=== PATIENT | male | born 1950 | race Caucasian/White ===

== ENCOUNTER 2016-06-16 00:22 | Emergency (ER) | payer OTHER ==
--- NOTE | 2016-06-16 04:55 | ED ORDER SUMMARY ---
..... Patient: DEBRA SHI OrderSheet [facility] VisitID: [id number] [place] [address] 65y, M Registration Date/Time: 06/16/2016 ORDER SHEET Weight: 71.2 kg (stated) Allergies: No Known Drug Allergy GENERAL ORDERS: Cardiac Panel Stat (00:54 06/16/2016 Andressa REED) (Ack 1:07 Odilon) (1:11 Deanna R.N.) Amylase Urgent (00:54 06/16/2016 Andressa REED) (Ack 1:07 Odilon) (1:11 Deanna R.N.) Lipase Urgent (00:54 06/16/2016 Andressa REED) (Ack 1:08 Odilon) (1:11 Deanna R.N.) - (po challenge.) (02:18 06/16/2016 Andressa REED) (2:26 Deanna R.N.) MEDICATION ORDERS: IV FLUIDS: IV NS : initial bolus 500 mL (1000 mL/hr), then 200 mL/hr for 4h (NOW); Routine (00:53 06/16/2016 Andressa REED) (Ack 0:54 Deanna R.N.) (1:12 Deanna R.N.) Zofran IV 4 mg (NOW) (00:53 06/16/2016 Andressa REED) (Ack 0:54 Deanna R.N.) (1:12 Deanna R.N.) Clindamycin IV 900 mg/50mL (NOW) (02:06/16/2016 Andressa REED) (Cancelled: Other2:17 Andressa REED) Levaquin IV 750 mg/150 mL (NOW) (02:06/16/2016 Andressa REED) (Cancelled: Other2:17 Andressa REED) Vancomycin IV 25 mg/kg (NOW) (02:17 06/16/2016 Andressa REED) (Ack 2:23 Deanna R.N.) (2:45 Deanna R.N.) ORDER SHEET NOTES: [Electronically signed by Nayeli Dupont R.N. (04:54 06/16/2016)] [Electronically locked/signed by Nayeli Dupont R.N. (04:54 06/16/2016)]
--- NOTE | 2016-06-16 04:55 | ED NURSING NOTES ---
Clinical Report - Nurses [address] [place] [address] [place] [address] 06/16/2016 0:24 Patient: DEBRA SHI TRIAGE Triage time 00:25. Acuity: LEVEL 3. Chief Complaint: ABDOMINAL PAIN, NAUSEA and VOMITING. --00:33 Nayeli Dupont R.N. 00:25 06/16/16. BP: 166/88 (regular adult cuff) taken on the left arm, while lying. HR: 85 (regular, normal rate and strong). RR: 18 (regular, unlabored and normal). O2 saturation: 98% on room air. Temp: 98.9 F (oral). Pain level now: 03/27. --00:33 Nayeli Dupont R.N. Weight: 71.2 kg stated. Height/Length: 68 inches Per Patient. BMI: 23.9. --00:29 Nayeli Dupont R.N. Medications Augmentin Oral (Tablet 875-125 mg) 1 tablet, 2x a day. --00:27 Nayeli Dupont R.N. Hydrochlorothiazide Oral (Tablet 25 mg) 1 tablet, daily. --00:28 Nayeli Dupont R.N. Losartan Potassium Oral (Tablet 100 mg) 1 tablet, daily. --00:28 Nayeli Dupont R.N. Allergies No Known Drug Allergy. --00:28 Nayeli Dupont R.N. History Arrived by EMS. Historian: patient. Primary physician (robel). Onset was abrupt. Symptoms are constant (about 9 PM). ( started taking Augmentin tonight at 2000 for a glandular infection). He has had severe nausea (2 hours ago). He has had severe vomiting (since 2 hours ago). The vomiting has occurred numerous times. PAST MEDICAL HX: Immunizations: up-to-date. SOCIAL HX: Occasional alcohol use. History of occasional drug use: marijuana. SELF HARM ASSESSMENT: A self harm assessment was performed. The patient answered "no" to the question "Have you recently felt down, depressed, or hopeless?", "Have you noticed less interest or pleasure in doing things?", "Do you have thoughts of harming or killing yourself?", "Are you here because you tried to hurt yourself?", "Have you ever tried to hurt yourself before today?", "Have you recently had thoughts about harming or killing others?" and "Do you have any dangerous items in your possession?". --00:33 Nayeli Dupont R.N. PROBLEMS: Hypertension. --00:30 Nayeli Dupont R.N. ADDITIONAL SURGERIES: Discectomy for intervertebral herniated disc, nucleus pulposus. Tonsillectomy & Adenoidectomy. --00:30 Nayeli Dupont R.N. Interventions ID band on patient. --00:33 Nayeli Dupont R.N. PHYSICAL ASSESSMENT GENERAL / NEURO / PSYCH: Alert. Oriented X 4. Appears in no acute distress. HEENT: Mucous membranes are pink. RESPIRATORY: Respirations not labored. CVS: Normal sinus rhythm noted. Capillary refill less than 2 seconds. GI / : Abdomen soft and nontender. Bowel sounds within normal limits. SKIN: Skin is warm and dry. --00:33 Nayeli Dupont R.N. To room via stretcher. Patient gowned. --00:33 Nayeli Dupont R.N. NURSING PROGRESS NOTES Two patient identifiers checked. Call light placed in reach. Side rails up x 2. Bed placed in lowest position. Brakes of bed on. --00:34 Nayeli Dupont R.N. Patient ready for evaluation- chart flagged. --00:34 Nayeli Dupont R.N. 01:05 06/16/2016 Site #1 started via IV in the right forearm with an 18g angiocath, with aseptic technique and good blood return; one attempt. Blood drawn: rainbow set. Labeled in the presence of the patient and sent to the lab. Saline lock flushed with 10 mL saline. --01:12 Nayeli Dupont R.N. 01:08 06/16/2016 Started bag #1 1000 mL IV Fluids IV NS (Saline); bolus of 500 mL over 1 hour(s) via site #1 via IV pump. Allergies verified and confirmed 5 rights. IV patency established. IV site checked: no pain, redness, or swelling. IV flushed thoroughly pre- and post-medication administration. --01:12 Nayeli Dupont R.N. 01:08 06/16/2016 Zofran (Ondansetron HCl) IVP 4 mg given over 2 minute(s) via site #1. Allergies verified and confirmed 5 rights. IV patency established. IV site checked: no pain, redness, or swelling. IV flushed thoroughly pre- and post-medication administration. IVP given by RN. --01:12 Nayeli Dupont R.N. Reassurance given to the patient and patient's family. GI / : The patient reports vomiting is still present and worsening and currently severe, with emesis that is currently described as dark (400ML prior to IV start). Two patient identifiers checked. Call light placed in reach. Side rails up x 2. Bed placed in lowest position. Brakes of bed on. --01:14 Nayeli Dupont R.N. 01:38 06/16/2016 IV Fluids IV NS via IV site #1 Rate Changed: bag #1 decreased to 200 mL/hr via IV pump. IV patency established. IV site checked: no pain, redness, or swelling. IV flushed thoroughly. (500ml bolus complete). --01:38 Jeannine Lopez R.N. 01:50 06/16/16. BP: 136/81 taken on the left arm, while lying. HR: 65 (regular and normal rate). RR: 18 (regular and unlabored). O2 saturation: 97% on room air. Temp: deferred. Pain level now: 02/24. --01:51 Nayeli Dupont R.N. Reassessment after fluids administered and medication administered (Zofran). Overall patient status is improved- he states feels better. --01:51 Nayeli Dupont R.N. 02:39 06/16/2016 Started 2 gm of Vancomycin IVPB in bag #1 500 mL; over 2 hour(s) via site #1 via IV pump. Allergies verified and confirmed 5 rights. IV patency established. IV site checked: no pain, redness, or swelling. IV flushed thoroughly pre- and post-medication administration. --02:45 Nayeli Dupont R.N. 02:45 06/16/16. BP: 140/77 taken on the left arm, while lying. HR: 69 (regular and normal rate). RR: 16. O2 saturation: 97% on room air. Temp: deferred. Pain level now: 02/24. --02:46 Nayeli Dupont R.N. Overall patient status is improved- he states feels better. ( po challenge tolerated, IVF infusing, pt resting no distress noted at this time.). GI / : The patient reports nausea is gone now. He reports vomiting is gone now. Abdomen soft and nontender. Bowel sounds within normal limits. SKIN: Skin is warm and dry. Skin color within normal limits. --03:13 Nayeli Dupont R.N. 04:42 06/16/2016 IV Fluids IV NS Discontinued: bag #1 completed. Total amount infused: 1000 mL. IV patency established. IV site checked: no pain, redness, or swelling. IV flushed thoroughly. --04:42 Nayeli Dupont R.N. 04:42 06/16/2016 Vancomycin IVPB Discontinued: bag #1 completed. Total amount infused: 500 mL. IV patency established. IV site checked: no pain, redness, or swelling. IV flushed thoroughly. --04:42 Nayeli Dupont R.N. DISPOSITION / DISCHARGE 04:51 06/16/2016 Site #1 removed upon discharge. Catheter intact. Manual pressure and bandage applied. --04:51 Nayeli Dupont R.N. Departure time: 0451. Condition at departure: improved. No learning barriers present. Discharge instructions provided and reviewed with the patient and spouse. Reviewed medication(s) side effects, precautions, dosing and course information. Prescription(s) given to the patient. Activity restrictions (rest) reviewed. Work note given. Patient and spouse verbalized understanding. Written instructions provided in Lithuanian. The patient was discharged home and accompanied by spouse. He left the Emergency Department ambulatory and via private vehicle. Spouse driving. --04:54 Nayeli Dupont R.N. 04:51 06/16/16. BP: 127/80 (regular adult cuff) taken on the left arm, while lying. HR: 72 (regular and normal rate). RR: 18 (regular and unlabored). O2 saturation: 100% on room air. Temp: 98.3 F (oral). Pain level now: 02/24. --04:54 Nayeli Dupont R.N. Locked/Released at 06/16/2016 4:54 by Nayeli Dupont R.N.
--- NOTE | 2016-06-16 04:55 | ED ORDER SUMMARY ---
..... Patient: DEBRA SHI OrderSheet [facility] VisitID: [id number] [place] [address] 65y, M Registration Date/Time: 06/16/2016 ORDER SHEET Weight: 71.2 kg (stated) Allergies: No Known Drug Allergy GENERAL ORDERS: Cardiac Panel Stat (00:54 06/16/2016 Andressa REED) (Ack 1:07 Odilon) (1:11 Deanna R.N.) Amylase Urgent (00:54 06/16/2016 Andressa REED) (Ack 1:07 Odilon) (1:11 Deanna R.N.) Lipase Urgent (00:54 06/16/2016 Andressa REED) (Ack 1:08 Odilon) (1:11 Deanna R.N.) - (po challenge.) (02:18 06/16/2016 Andressa REED) (2:26 Deanna R.N.) MEDICATION ORDERS: IV FLUIDS: IV NS : initial bolus 500 mL (1000 mL/hr), then 200 mL/hr for 4h (NOW); Routine (00:53 06/16/2016 Andressa REED) (Ack 0:54 Deanna R.N.) (1:12 Deanna R.N.) Zofran IV 4 mg (NOW) (00:53 06/16/2016 Andressa REED) (Ack 0:54 Deanna R.N.) (1:12 Deanna R.N.) Clindamycin IV 900 mg/50mL (NOW) (02:06/16/2016 Andressa REED) (Cancelled: Other2:17 Andressa REED) Levaquin IV 750 mg/150 mL (NOW) (02:06/16/2016 Andressa REED) (Cancelled: Other2:17 Andressa REED) Vancomycin IV 25 mg/kg (NOW) (02:17 06/16/2016 Andressa REED) (Ack 2:23 Deanna R.N.) (2:45 Deanna R.N.) ORDER SHEET NOTES: [Electronically signed by Nayeli Dupont R.N. (04:54 06/16/2016)] [Electronically locked/signed by Nayeli Dupont R.N. (04:54 06/16/2016)]
--- NOTE | 2016-06-16 04:55 | ED CLINICAL REPORT ---
Clinical Report - Physicians/Mid Levels [facility] [address] [place] [address] 06/16/2016 0:24 Patient: DBERA SHI Time Seen: 00:46 Jun 16 2016. Arrived- By ambulance. Historian- patient, EMS personnel, family and spouse. CPT: ER phys charges level 4 (#[id number]). HISTORY OF PRESENT ILLNESS Chief Complaint: VOMITING. This started just prior to arrival )ne hour after taking first dose of augmentin. and is still present. The patient has had nausea and vomiting. No diarrhea, black stools, bloody stools, abdominal pain or flank pain. No history of possible bad food exposure or known contact with a sick individual. Has recently been on antibiotics but not recently been camping. The illness is described as moderate. Similar symptoms previously: None. Recent medical care: The patient was seen recently at another facility in a clinic. Diagnosis: (right parotitis). REVIEW OF SYSTEMS No fever, muscle aches, difficulty with urination, dark urine or dizziness. No sore throat, cough, chest pain, difficulty breathing or skin rash. All systems otherwise negative, except as recorded above. PAST HISTORY Hypertension. - ADDITIONAL SURGERIES: Discectomy for intervertebral herniated disc, nucleus pulposus. Tonsillectomy & Adenoidectomy. Medications: Losartan Potassium Oral (Tablet 100 mg) 1 tablet, daily. Hydrochlorothiazide Oral (Tablet 25 mg) 1 tablet, daily. Augmentin Oral (Tablet 875-125 mg) 1 tablet, 2x a day. Allergies: No Known Drug Allergy. SOCIAL HISTORY Never smoker. Occasional alcohol use. History of occasional drug use: marijuana. ADDITIONAL NOTES The nursing notes have been reviewed. PHYSICAL EXAM Vital Signs: 06/16/2016 00:25 BP: 166/88. HR: 85. RR: 18. O2 saturation: 98%. Temp: 98.9 F. Pain level now: 2/10. Appearance: Alert. Patient in mild distress. (Acitive emesis in the ER.). Eyes: Eyes normal inspection. ENT: Pharynx normal. (mild swelling and tenderness over the right parotid gland.). Neck: Normal inspection. CVS: Normal heart rate and rhythm. Heart sounds normal. Pulses normal. Respiratory: No respiratory distress. Breath sounds normal. Abdomen: Soft and nontender. Bowel sounds normal. Back: Normal inspection. Skin: Skin warm. Normal skin color. No rash. Extremities: Extremities exhibit normal ROM. Neuro: Oriented X 3. No motor deficit. No sensory deficit. Reflexes normal. LABS, X-RAYS, AND EKG Laboratory Tests: CBC w Diff: (PAO: 06/16/2016 01:05) ( [facility] 06/16/2016 01:17) Final results Test Result Flag Units (Reference) WHITE BLOOD COUNT 24.6 H K/uL (4.5-11.5) RED BLOOD COUNT 5.29 M/uL (4.50-5.90) HEMOGLOBIN 17.2 gm/dL (13.5-17.5) HEMATOCRIT 51.3 % (41.0-53.0) MEAN CELL VOLUME 97 fL (80-100) MEAN CORPUSCULAR HGB 32 pg (26-34) MEAN CORPUSCULAR HGB CONC 33 g/dL (31-37) RED CELL DISTRIBUTION WIDTH 13.6 % (11.6-14.8) PLATELET COUNT 310 K/uL (150-400) NEUTROPHIL % 92.7 H % (50-75) LYMPH % 2.6 L % (25-40) MONO % 4.1 % (3-14) EOSINOPHIL % 0.6 % (0-4) BASOPHIL % 0 % (0-2) Lipase: (PAO: 06/16/2016 01:05) ( [facility] 06/16/2016 01:27) Final results Test Result Flag Units (Reference) LIPASE 332 U/L (73-393) AMYLASE 517 H U/L (25-115) CHEM 13 PANEL: (PAO: 06/16/2016 01:05) ( [facility] 06/16/2016 01:32) Final results Test Result Flag Units (Reference) GLUCOSE 161 H mg/dL (70-110) BUN 13 mg/dL (7-18) CREATININE 0.8 mg/dL (0.6-1.3) Estimated GFR >60 mL/min Estimated GFR- >60 mL/min Note: Persistent reduction over 3 months in eGFR<60 mL/min/1.73 m2 defines CKD. Patients with eGFR values>=60 mL/min/1.73 m2 may also have CKD if evidence ofpersistent proteinuria. Additional information may be foundat www.kidney.org. SODIUM 141 mmol/L (136-145) POTASSIUM 4.0 mmol/L (3.5-5.1) CHLORIDE 102 mmol/L (98-107) CARBON DIOXIDE 25 mmol/L (21-32) CALCIUM 9.5 mg/dL (8.5-10.1) TOTAL PROTEIN 7.9 g/dL (6.4-8.2) ALBUMIN 4.2 g/dL (3.3-5.0) BILIRUBIN, TOTAL 0.6 mg/dL (0.0-1.0) ALKALINE PHOSPHATASE 125 H U/L (46-116) AST (SGOT) 33 U/L (15-37) ALT (SGPT) 53 U/L (12-78) MAGNESIUM 1.7 L mg/dL (1.8-2.4) CPK 90 U/L (24-260) TROPONIN I <0.05 ng/mL (0.00-1.5) TROPONIN REFERENCE RANGE:<0.1 NEGATIVE0.1-1.5 INDETERMINANT>1.5 POSITIVE . PROGRESS AND PROCEDURES Course of Care: Pt has had active and continuous vomiting for the last hour without relief. His elevated WBC is likely due to demargination from the excessive vomiting. . Pt is not septic or toxic. He likely has intolerance for the clavulinate as he has had amoxicillin in the past without any problems. Abdomen is non-tender and labs do not support another GI diagnosis or other process related to the cardiovascular or neurologic systems. Amylase is slightly elevated and due to the excessive vomiting and parotitis. Pt has no abdominal pain. IV NS Zofran 4 mg IV Vancomycin 25mg/kg IV Pt able to take po now without emesis. Patient is stable. Symptoms much better. Patient/family counseled. Disposition: Discharged. Condition: stable and improved. CLINICAL IMPRESSION Vomiting reaction due to augmentin Parotitis right side. INSTRUCTIONS No strenuous activity. Rest. Drink plenty of fluids. Warnings: Further evaluation is necessary. GENERAL WARNINGS: Return or contact your physician immediately if your condition worsens or changes unexpectedly, if not improving as expected, or if other problems arise. Your Current Medications: STOP TAKING THE FOLLOWING MEDICATIONS: Augmentin Oral : Tablet 875-125 mg, 1 tablet 2x a day. Prescription Medications: Zofran (orally disintegrating tablets) 4 mg: take 1 orally every 4 hours as needed for nausea and vomiting. Dispense fifteen (15). No refill. Substitution is permissible. Levaquin 500 mg: take 1 tab orally every day for 10 days. No refills. Clindamycin 300 mg: take 1 capsule orally every 6 hours for 7 days. No refills. Follow-up: Follow up with your doctor in two days. Call for the next available appointment. Understanding of the discharge instructions verbalized by patient and family. Discharge instructions reviewed with and understanding was verbalized by spouse. (Electronically signed by Korey Glynn MD 06/17/2016 8:36)
--- NOTE | 2016-06-16 04:55 | ED CLINICAL REPORT ---
Clinical Report - Physicians/Mid Levels [facility] [address] [place] [address] 06/16/2016 0:24 Patient: DEBRA SHI Time Seen: 00:46 Jun 16 2016. Arrived- By ambulance. Historian- patient, EMS personnel, family and spouse. CPT: ER phys charges level 4 (#[id number]). HISTORY OF PRESENT ILLNESS Chief Complaint: VOMITING. This started just prior to arrival )ne hour after taking first dose of augmentin. and is still present. The patient has had nausea and vomiting. No diarrhea, black stools, bloody stools, abdominal pain or flank pain. No history of possible bad food exposure or known contact with a sick individual. Has recently been on antibiotics but not recently been camping. The illness is described as moderate. Similar symptoms previously: None. Recent medical care: The patient was seen recently at another facility in a clinic. Diagnosis: (right parotitis). REVIEW OF SYSTEMS No fever, muscle aches, difficulty with urination, dark urine or dizziness. No sore throat, cough, chest pain, difficulty breathing or skin rash. All systems otherwise negative, except as recorded above. PAST HISTORY Hypertension. - ADDITIONAL SURGERIES: Discectomy for intervertebral herniated disc, nucleus pulposus. Tonsillectomy & Adenoidectomy. Medications: Losartan Potassium Oral (Tablet 100 mg) 1 tablet, daily. Hydrochlorothiazide Oral (Tablet 25 mg) 1 tablet, daily. Augmentin Oral (Tablet 875-125 mg) 1 tablet, 2x a day. Allergies: No Known Drug Allergy. SOCIAL HISTORY Never smoker. Occasional alcohol use. History of occasional drug use: marijuana. ADDITIONAL NOTES The nursing notes have been reviewed. PHYSICAL EXAM Vital Signs: 06/16/2016 00:25 BP: 166/88. HR: 85. RR: 18. O2 saturation: 98%. Temp: 98.9 F. Pain level now: 2/10. Appearance: Alert. Patient in mild distress. (Acitive emesis in the ER.). Eyes: Eyes normal inspection. ENT: Pharynx normal. (mild swelling and tenderness over the right parotid gland.). Neck: Normal inspection. CVS: Normal heart rate and rhythm. Heart sounds normal. Pulses normal. Respiratory: No respiratory distress. Breath sounds normal. Abdomen: Soft and nontender. Bowel sounds normal. Back: Normal inspection. Skin: Skin warm. Normal skin color. No rash. Extremities: Extremities exhibit normal ROM. Neuro: Oriented X 3. No motor deficit. No sensory deficit. Reflexes normal. LABS, X-RAYS, AND EKG Laboratory Tests: CBC w Diff: (PAO: 06/16/2016 01:05) ( [facility] 06/16/2016 01:17) Final results Test Result Flag Units (Reference) WHITE BLOOD COUNT 24.6 H K/uL (4.5-11.5) RED BLOOD COUNT 5.29 M/uL (4.50-5.90) HEMOGLOBIN 17.2 gm/dL (13.5-17.5) HEMATOCRIT 51.3 % (41.0-53.0) MEAN CELL VOLUME 97 fL (80-100) MEAN CORPUSCULAR HGB 32 pg (26-34) MEAN CORPUSCULAR HGB CONC 33 g/dL (31-37) RED CELL DISTRIBUTION WIDTH 13.6 % (11.6-14.8) PLATELET COUNT 310 K/uL (150-400) NEUTROPHIL % 92.7 H % (50-75) LYMPH % 2.6 L % (25-40) MONO % 4.1 % (3-14) EOSINOPHIL % 0.6 % (0-4) BASOPHIL % 0 % (0-2) Lipase: (PAO: 06/16/2016 01:05) ( [facility] 06/16/2016 01:27) Final results Test Result Flag Units (Reference) LIPASE 332 U/L (73-393) AMYLASE 517 H U/L (25-115) CHEM 13 PANEL: (PAO: 06/16/2016 01:05) ( [facility] 06/16/2016 01:32) Final results Test Result Flag Units (Reference) GLUCOSE 161 H mg/dL (70-110) BUN 13 mg/dL (7-18) CREATININE 0.8 mg/dL (0.6-1.3) Estimated GFR >60 mL/min Estimated GFR- >60 mL/min Note: Persistent reduction over 3 months in eGFR<60 mL/min/1.73 m2 defines CKD. Patients with eGFR values>=60 mL/min/1.73 m2 may also have CKD if evidence ofpersistent proteinuria. Additional information may be foundat www.kidney.org. SODIUM 141 mmol/L (136-145) POTASSIUM 4.0 mmol/L (3.5-5.1) CHLORIDE 102 mmol/L (98-107) CARBON DIOXIDE 25 mmol/L (21-32) CALCIUM 9.5 mg/dL (8.5-10.1) TOTAL PROTEIN 7.9 g/dL (6.4-8.2) ALBUMIN 4.2 g/dL (3.3-5.0) BILIRUBIN, TOTAL 0.6 mg/dL (0.0-1.0) ALKALINE PHOSPHATASE 125 H U/L (46-116) AST (SGOT) 33 U/L (15-37) ALT (SGPT) 53 U/L (12-78) MAGNESIUM 1.7 L mg/dL (1.8-2.4) CPK 90 U/L (24-260) TROPONIN I <0.05 ng/mL (0.00-1.5) TROPONIN REFERENCE RANGE:<0.1 NEGATIVE0.1-1.5 INDETERMINANT>1.5 POSITIVE . PROGRESS AND PROCEDURES Course of Care: Pt has had active and continuous vomiting for the last hour without relief. His elevated WBC is likely due to demargination from the excessive vomiting. . Pt is not septic or toxic. He likely has intolerance for the clavulinate as he has had amoxicillin in the past without any problems. Abdomen is non-tender and labs do not support another GI diagnosis or other process related to the cardiovascular or neurologic systems. Amylase is slightly elevated and due to the excessive vomiting and parotitis. Pt has no abdominal pain. IV NS Zofran 4 mg IV Vancomycin 25mg/kg IV Pt able to take po now without emesis. Patient is stable. Symptoms much better. Patient/family counseled. Disposition: Discharged. Condition: stable and improved. CLINICAL IMPRESSION Vomiting reaction due to augmentin Parotitis right side. INSTRUCTIONS No strenuous activity. Rest. Drink plenty of fluids. Warnings: Further evaluation is necessary. GENERAL WARNINGS: Return or contact your physician immediately if your condition worsens or changes unexpectedly, if not improving as expected, or if other problems arise. Your Current Medications: STOP TAKING THE FOLLOWING MEDICATIONS: Augmentin Oral : Tablet 875-125 mg, 1 tablet 2x a day. Prescription Medications: Zofran (orally disintegrating tablets) 4 mg: take 1 orally every 4 hours as needed for nausea and vomiting. Dispense fifteen (15). No refill. Substitution is permissible. Levaquin 500 mg: take 1 tab orally every day for 10 days. No refills. Clindamycin 300 mg: take 1 capsule orally every 6 hours for 7 days. No refills. Follow-up: Follow up with your doctor in two days. Call for the next available appointment. Understanding of the discharge instructions verbalized by patient and family. Discharge instructions reviewed with and understanding was verbalized by spouse. (Electronically signed by Korey Glynn MD 06/17/2016 8:36)
--- NOTE | 2016-06-17 08:37 | ED MAR SUMMARY ---
..... Medication Administration Record [facility] [address] [place] [address] Patient: DEBRA SHI Visit ID: [id number] 65y, M Weight: 71.2 kg Height/Length: 68 in BMI: 23.9 ALLERGIES: No Known Drug Allergy Start 01:08 06/16/2016 Nayeli Dupont R.N., Stop 04:42 06/16/2016 Nayeli Dupont R.N. Medication Administered: IV NS (SALINE), Dose: IV Fluids, Bolus: 500 mL over 1 hour(s), Dispensed: 1000 mL bag, Site: #1 right forearm. Medication Ordered: IV NS : initial bolus 500 mL (1000 mL/hr), then 200 mL/hr for 4h (NOW); Routine. Given 01:08 06/16/2016 Nayeli Dupont R.N. Medication Administered: ZOFRAN [IVP] (ONDANSETRON HCL), Dose: 4 mg IVP over 2 minute(s), Site: #1 right forearm. Medication Ordered: Zofran IV 4 mg (NOW). Start 02:39 06/16/2016 Nayeli Dupont R.N., Stop 04:42 06/16/2016 Nayeli Dupont R.N. Medication Administered: VANCOMYCIN [IVPB], Dose: 2 gm IVPB over 2 hour(s), Dispensed: 500 mL bag, Site: #1 right forearm. Medication Ordered: Vancomycin IV 25 mg/kg (NOW).
--- NOTE | 2016-06-17 08:37 | ED MED RECONCILIATION SUMMARY ---
Patient: DEBRA SHI Medication Reconciliation Report [facility] VisitID: [id number] [place] [address] 65y, M Registration Date/Time: 06/16/2016 Weight: 71.2 kg Height/Length: 68 in. BMI: 23.9 ALLERGIES: No Known Drug Allergy The patient's Home Medications are listed below: STOP TAKING THE FOLLOWING MEDICATIONS: Augmentin Oral (875-125 mg) 1 tablet, 2x a day THE FOLLOWING MEDICATIONS NEED TO BE RECONCILED: Hydrochlorothiazide Oral (25 mg) 1 tablet, daily Losartan Potassium Oral (100 mg) 1 tablet, daily The source(s) of the original Home Medication information: Not obtained. The following Medications were given to the patient in the Emergency Department: IV NS IV Fluids bolus 500 mL over 1 hour(s), administered: 06/16/2016 1:08:00 AM Zofran [IVP] IVP 4 mg, administered: 06/16/2016 1:08:00 AM Vancomycin [IVPB] IVPB bolus 0, then 2 gm, administered: 06/16/2016 2:39:00 AM The following Medications were prescribed to the patient: Zofran (orally disintegrating tablets) 4 mg: take 1 orally every 4 hours as needed for nausea and vomiting. Dispense fifteen (15). No refill. Substitution is permissible. -- Korey Glynn MD Levaquin 500 mg: take 1 tab orally every day for 10 days. No refills. -- Korey Glynn MD Clindamycin 300 mg: take 1 capsule orally every 6 hours for 7 days. No refills. -- Korey Glynn MD
--- NOTE | 2016-06-17 08:37 | ED MAR SUMMARY ---
..... Medication Administration Record [facility] [address] [place] [address] Patient: DEBRA SHI Visit ID: [id number] 65y, M Weight: 71.2 kg Height/Length: 68 in BMI: 23.9 ALLERGIES: No Known Drug Allergy Start 01:08 06/16/2016 Nayeli Dupont R.N., Stop 04:42 06/16/2016 Nayeli Dupont R.N. Medication Administered: IV NS (SALINE), Dose: IV Fluids, Bolus: 500 mL over 1 hour(s), Dispensed: 1000 mL bag, Site: #1 right forearm. Medication Ordered: IV NS : initial bolus 500 mL (1000 mL/hr), then 200 mL/hr for 4h (NOW); Routine. Given 01:08 06/16/2016 Nayeli Dupont R.N. Medication Administered: ZOFRAN [IVP] (ONDANSETRON HCL), Dose: 4 mg IVP over 2 minute(s), Site: #1 right forearm. Medication Ordered: Zofran IV 4 mg (NOW). Start 02:39 06/16/2016 Nayeli Dupont R.N., Stop 04:42 06/16/2016 Nayeli Dupont R.N. Medication Administered: VANCOMYCIN [IVPB], Dose: 2 gm IVPB over 2 hour(s), Dispensed: 500 mL bag, Site: #1 right forearm. Medication Ordered: Vancomycin IV 25 mg/kg (NOW).
--- NOTE | 2016-06-17 08:37 | ED DISCHARGE INSTRUCTIONS ---
Patient: DEBRA SHI General Instructions [facility] VisitID: [id number] [place] [address] 65y, M Registration Date/Time: 06/16/2016 Vomiting reaction due to augmentin Parotitis right side. INSTRUCTIONS No strenuous activity. Rest. Drink plenty of fluids. Warnings: Further evaluation is necessary. GENERAL WARNINGS: Return or contact your physician immediately if your condition worsens or changes unexpectedly, if not improving as expected, or if other problems arise. Your Current Medications: STOP TAKING THE FOLLOWING MEDICATIONS: Augmentin Oral : Tablet 875-125 mg, 1 tablet 2x a day. Prescription Medications: Zofran (orally disintegrating tablets) 4 mg: take 1 orally every 4 hours as needed for nausea and vomiting. Dispense fifteen (15). No refill. Substitution is permissible. Levaquin 500 mg: take 1 tab orally every day for 10 days. No refills. Clindamycin 300 mg: take 1 capsule orally every 6 hours for 7 days. No refills. Follow-up: Follow up with your doctor in two days. Call for the next available appointment. Understanding of the discharge instructions verbalized by patient and family. Discharge instructions reviewed with and understanding was verbalized by spouse. ADDITIONAL INFORMATION Ondansetron Oral disintegrating tablet What is this medicine? ONDANSETRON (on MAT se adolfo) is used to treat nausea and vomiting caused by chemotherapy. It is also used to prevent or treat nausea and vomiting after surgery. How should I use this medicine? These tablets are made to dissolve in the mouth. Do not try to push the tablet through the foil backing. With dry hands, peel away the foil backing and gently remove the tablet. Place the tablet in the mouth and allow it to dissolve, then swallow. While you may take these tablets with water, it is not necessary to do so. Talk to your center mgr regarding the use of this medicine in children. Special care may be needed. What side effects may I notice from receiving this medicine? Side effects that you should report to your doctor or health child day care teacher as soon as possible: allergic reactions like skin rash, itching or hives, swelling of the face, lips, or tongue breathing problems dizziness fast or irregular heartbeat feeling faint or lightheaded, falls fever and chills swelling of the hands and feet tightness in the chest Side effects that usually do not require medical attention (report to your doctor or health child day care teacher if they continue or are bothersome): constipation or diarrhea headache What may interact with this medicine? Do not take this medicine with any of the following medications: -apomorphine -cisapride -dofetilide -dronedarone -pimozide -thioridazine -ziprasidone This medicine may also interact with the following medications: -carbamazepine -phenytoin -rifampicin -tramadol -other medicines that prolong the QT interval (cause an abnormal heart rhythm) What if I miss a dose? If you miss a dose, take it as soon as you can. If it is almost time for your next dose, take only that dose. Do not take double or extra doses. Where should I keep my medicine? Keep out of the reach of children. Store between 2 and 30 degrees C (36 and 86 degrees F). Throw away any unused medicine after the expiration date. What should I tell my health care provider before I take this medicine? They need to know if you have any of these conditions: heart disease history of irregular heartbeat liver disease low levels of magnesium or potassium in the blood an unusual or allergic reaction to ondansetron, granisetron, other medicines, foods, dyes, or preservatives or trying to get breast-feeding What should I watch for while using this medicine? Check with your doctor or health child day care teacher as soon as you can if you have any sign of an allergic reaction. Levofloxacin Oral tablet What is this medicine? LEVOFLOXACIN (juju rubin) is a quinolone antibiotic. It is used to treat certain kinds of bacterial infections. It will not work for colds, flu, or other viral infections. How should I use this medicine? Take this medicine by mouth with a full glass of water. Follow the directions on the prescription label. This medicine can be taken with or without food. Take your medicine at regular intervals. Do not take your medicine more often than directed. Do not skip doses or stop your medicine early even if you feel better. Do not stop taking except on your doctor's advice. A special MedGuide will be given to you by the pharmacist with each prescription and refill. Be sure to read this information carefully each time. Talk to your center mgr regarding the use of this medicine in children. While this drug may be prescribed for children as young as 6 months for selected conditions, precautions do apply. What side effects may I notice from receiving this medicine? Side effects that you should report to your doctor or health child day care teacher as soon as possible: -allergic reactions like skin rash or hives, swelling of the face, lips, or tongue -changes in vision -confusion, nightmares or hallucinations -difficulty breathing -irregular heartbeat, chest pain -joint, muscle or tendon pain -pain or difficulty passing urine -persistent headache with or without blurred vision -redness, blistering, peeling or loosening of the skin, including inside the mouth -seizures -unusual pain, numbness, tingling, or weakness -vaginal irritation, discharge Side effects that usually do not require medical attention (report to your doctor or health child day care teacher if they continue or are bothersome): -diarrhea -dry mouth -headache -stomach upset, nausea -trouble sleeping What may interact with this medicine? Do not take this medicine with any of the following medications: - arsenic trioxide - chloroquine - droperidol - medicines for irregular heart rhythm like amiodarone, disopyramide, dofetilide, flecainide, quinidine, procainamide, sotalol - some medicines for depression or mental problems like phenothiazines, pimozide, and ziprasidone This medicine may also interact with the following medications: - amoxapine -antacids - cisapride - dairy products - didanosine (ddI) buffered tablets or powder - haloperidol - multivitamins -NSAIDS, medicines for pain and inflammation, like ibuprofen or naproxen - retinoid products like tretinoin or isotretinoin - risperidone - some other antibiotics like clarithromycin or erythromycin - sucralfate - theophylline - warfarin What if I miss a dose? If you miss a dose, take it as soon as you remember. If it is almost time for your next dose, take only that dose. Do not take double or extra doses. Where should I keep my medicine? Keep out of the reach of children. Store at room temperature between 15 and 30 degrees C (59 and 86 degrees F). Keep in a tightly closed container. Throw away any unused medicine after the expiration date. What should I tell my health care provider before I take this medicine? They need to know if you have any of these conditions: cerebral disease irregular heartbeat kidney disease seizure disorder an unusual or allergic reaction to levofloxacin, other antibiotics or medicines, foods, dyes, or preservatives or trying to get breast-feeding What should I watch for while using this medicine? Tell your doctor or health child day care teacher if your symptoms do not improve or if they get worse. Drink several glasses of water a day and cut down on drinks that contain caffeine. You must not get dehydrated while taking this medicine. You may get drowsy or dizzy. Do not drive, use machinery, or do anything that needs mental alertness until you know how this medicine affects you. Do not sit or stand up quickly, especially if you are an older patient. This reduces the risk of dizzy or fainting spells. This medicine can make you more sensitive to the sun. Keep out of the sun. If you cannot avoid being in the sun, wear protective clothing and use a sunscreen. Do not use sun lamps or tanning beds/booths. Contact your doctor if you get a sunburn. If you are a diabetic monitor your blood glucose carefully. If you get an unusual reading stop taking this medicine and call your doctor right away. Do not treat diarrhea with [id number] products. Contact your doctor if you have diarrhea that lasts more than 2 days or if the diarrhea is severe and watery. Avoid antacids, calcium, iron, and zinc products for 2 hours before and 2 hours after taking a dose of this medicine. You have been given the following additional information: Ondansetron Oral disintegrating tablet Levofloxacin Oral tablet No strenuous activity. Rest. (Electronically signed by Korey Glynn MD 06/17/2016 8:36)
--- NOTE | 2016-06-17 08:37 | ED DISCHARGE INSTRUCTIONS ---
Patient: DEBRA SHI General Instructions [facility] VisitID: [id number] [place] [address] 65y, M Registration Date/Time: 06/16/2016 Vomiting reaction due to augmentin Parotitis right side. INSTRUCTIONS No strenuous activity. Rest. Drink plenty of fluids. Warnings: Further evaluation is necessary. GENERAL WARNINGS: Return or contact your physician immediately if your condition worsens or changes unexpectedly, if not improving as expected, or if other problems arise. Your Current Medications: STOP TAKING THE FOLLOWING MEDICATIONS: Augmentin Oral : Tablet 875-125 mg, 1 tablet 2x a day. Prescription Medications: Zofran (orally disintegrating tablets) 4 mg: take 1 orally every 4 hours as needed for nausea and vomiting. Dispense fifteen (15). No refill. Substitution is permissible. Levaquin 500 mg: take 1 tab orally every day for 10 days. No refills. Clindamycin 300 mg: take 1 capsule orally every 6 hours for 7 days. No refills. Follow-up: Follow up with your doctor in two days. Call for the next available appointment. Understanding of the discharge instructions verbalized by patient and family. Discharge instructions reviewed with and understanding was verbalized by spouse. ADDITIONAL INFORMATION Ondansetron Oral disintegrating tablet What is this medicine? ONDANSETRON (on MAT se adolfo) is used to treat nausea and vomiting caused by chemotherapy. It is also used to prevent or treat nausea and vomiting after surgery. How should I use this medicine? These tablets are made to dissolve in the mouth. Do not try to push the tablet through the foil backing. With dry hands, peel away the foil backing and gently remove the tablet. Place the tablet in the mouth and allow it to dissolve, then swallow. While you may take these tablets with water, it is not necessary to do so. Talk to your giant tire repairer regarding the use of this medicine in children. Special care may be needed. What side effects may I notice from receiving this medicine? Side effects that you should report to your doctor or health animal care supervisor as soon as possible: allergic reactions like skin rash, itching or hives, swelling of the face, lips, or tongue breathing problems dizziness fast or irregular heartbeat feeling faint or lightheaded, falls fever and chills swelling of the hands and feet tightness in the chest Side effects that usually do not require medical attention (report to your doctor or health animal care supervisor if they continue or are bothersome): constipation or diarrhea headache What may interact with this medicine? Do not take this medicine with any of the following medications: -apomorphine -cisapride -dofetilide -dronedarone -pimozide -thioridazine -ziprasidone This medicine may also interact with the following medications: -carbamazepine -phenytoin -rifampicin -tramadol -other medicines that prolong the QT interval (cause an abnormal heart rhythm) What if I miss a dose? If you miss a dose, take it as soon as you can. If it is almost time for your next dose, take only that dose. Do not take double or extra doses. Where should I keep my medicine? Keep out of the reach of children. Store between 2 and 30 degrees C (36 and 86 degrees F). Throw away any unused medicine after the expiration date. What should I tell my health care provider before I take this medicine? They need to know if you have any of these conditions: heart disease history of irregular heartbeat liver disease low levels of magnesium or potassium in the blood an unusual or allergic reaction to ondansetron, granisetron, other medicines, foods, dyes, or preservatives or trying to get breast-feeding What should I watch for while using this medicine? Check with your doctor or health animal care supervisor as soon as you can if you have any sign of an allergic reaction. Levofloxacin Oral tablet What is this medicine? LEVOFLOXACIN (juju rubin) is a quinolone antibiotic. It is used to treat certain kinds of bacterial infections. It will not work for colds, flu, or other viral infections. How should I use this medicine? Take this medicine by mouth with a full glass of water. Follow the directions on the prescription label. This medicine can be taken with or without food. Take your medicine at regular intervals. Do not take your medicine more often than directed. Do not skip doses or stop your medicine early even if you feel better. Do not stop taking except on your doctor's advice. A special MedGuide will be given to you by the pharmacist with each prescription and refill. Be sure to read this information carefully each time. Talk to your giant tire repairer regarding the use of this medicine in children. While this drug may be prescribed for children as young as 6 months for selected conditions, precautions do apply. What side effects may I notice from receiving this medicine? Side effects that you should report to your doctor or health animal care supervisor as soon as possible: -allergic reactions like skin rash or hives, swelling of the face, lips, or tongue -changes in vision -confusion, nightmares or hallucinations -difficulty breathing -irregular heartbeat, chest pain -joint, muscle or tendon pain -pain or difficulty passing urine -persistent headache with or without blurred vision -redness, blistering, peeling or loosening of the skin, including inside the mouth -seizures -unusual pain, numbness, tingling, or weakness -vaginal irritation, discharge Side effects that usually do not require medical attention (report to your doctor or health animal care supervisor if they continue or are bothersome): -diarrhea -dry mouth -headache -stomach upset, nausea -trouble sleeping What may interact with this medicine? Do not take this medicine with any of the following medications: - arsenic trioxide - chloroquine - droperidol - medicines for irregular heart rhythm like amiodarone, disopyramide, dofetilide, flecainide, quinidine, procainamide, sotalol - some medicines for depression or mental problems like phenothiazines, pimozide, and ziprasidone This medicine may also interact with the following medications: - amoxapine -antacids - cisapride - dairy products - didanosine (ddI) buffered tablets or powder - haloperidol - multivitamins -NSAIDS, medicines for pain and inflammation, like ibuprofen or naproxen - retinoid products like tretinoin or isotretinoin - risperidone - some other antibiotics like clarithromycin or erythromycin - sucralfate - theophylline - warfarin What if I miss a dose? If you miss a dose, take it as soon as you remember. If it is almost time for your next dose, take only that dose. Do not take double or extra doses. Where should I keep my medicine? Keep out of the reach of children. Store at room temperature between 15 and 30 degrees C (59 and 86 degrees F). Keep in a tightly closed container. Throw away any unused medicine after the expiration date. What should I tell my health care provider before I take this medicine? They need to know if you have any of these conditions: cerebral disease irregular heartbeat kidney disease seizure disorder an unusual or allergic reaction to levofloxacin, other antibiotics or medicines, foods, dyes, or preservatives or trying to get breast-feeding What should I watch for while using this medicine? Tell your doctor or health animal care supervisor if your symptoms do not improve or if they get worse. Drink several glasses of water a day and cut down on drinks that contain caffeine. You must not get dehydrated while taking this medicine. You may get drowsy or dizzy. Do not drive, use machinery, or do anything that needs mental alertness until you know how this medicine affects you. Do not sit or stand up quickly, especially if you are an older patient. This reduces the risk of dizzy or fainting spells. This medicine can make you more sensitive to the sun. Keep out of the sun. If you cannot avoid being in the sun, wear protective clothing and use a sunscreen. Do not use sun lamps or tanning beds/booths. Contact your doctor if you get a sunburn. If you are a diabetic monitor your blood glucose carefully. If you get an unusual reading stop taking this medicine and call your doctor right away. Do not treat diarrhea with [id number] products. Contact your doctor if you have diarrhea that lasts more than 2 days or if the diarrhea is severe and watery. Avoid antacids, calcium, iron, and zinc products for 2 hours before and 2 hours after taking a dose of this medicine. You have been given the following additional information: Ondansetron Oral disintegrating tablet Levofloxacin Oral tablet No strenuous activity. Rest. (Electronically signed by Korey Glynn MD 06/17/2016 8:36)
--- NOTE | 2016-06-17 08:37 | ED MED RECONCILIATION SUMMARY ---
Patient: DEBRA SHI Medication Reconciliation Report [facility] VisitID: [id number] [place] [address] 65y, M Registration Date/Time: 06/16/2016 Weight: 71.2 kg Height/Length: 68 in. BMI: 23.9 ALLERGIES: No Known Drug Allergy The patient's Home Medications are listed below: STOP TAKING THE FOLLOWING MEDICATIONS: Augmentin Oral (875-125 mg) 1 tablet, 2x a day THE FOLLOWING MEDICATIONS NEED TO BE RECONCILED: Hydrochlorothiazide Oral (25 mg) 1 tablet, daily Losartan Potassium Oral (100 mg) 1 tablet, daily The source(s) of the original Home Medication information: Not obtained. The following Medications were given to the patient in the Emergency Department: IV NS IV Fluids bolus 500 mL over 1 hour(s), administered: 06/16/2016 1:08:00 AM Zofran [IVP] IVP 4 mg, administered: 06/16/2016 1:08:00 AM Vancomycin [IVPB] IVPB bolus 0, then 2 gm, administered: 06/16/2016 2:39:00 AM The following Medications were prescribed to the patient: Zofran (orally disintegrating tablets) 4 mg: take 1 orally every 4 hours as needed for nausea and vomiting. Dispense fifteen (15). No refill. Substitution is permissible. -- Korey Glynn MD Levaquin 500 mg: take 1 tab orally every day for 10 days. No refills. -- Korey Glynn MD Clindamycin 300 mg: take 1 capsule orally every 6 hours for 7 days. No refills. -- Korey Glynn MD
== END 2016-06-16 04:57 | disposition home or self-care (01) ==
LOC: ED SRH 00:22
DX: R11.10 Vomiting, unspecified (principal); T36.0X5A Adverse effect of penicillins, initial encounter; K11.20 Sialoadenitis, unspecified; I10 Essential (primary) hypertension; Z79.899 Other long term (current) drug therapy
CPT/HCPCS: 90100; 90616; 92235; 92530; 92610; 92720; 95059